=== PATIENT | female | born 2000 | race Hispanic/Latino ===

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

== ENCOUNTER 2018-08-23 13:32 | Emergency (ER) | payer OTHER ==
[2018-08-23 14:00] LABS: APPEARANCE,URINE Cloudy (CLEAR); BILIRUBIN,URINE Negative (NEGATIVE); COLOR,URINE Yellow (YELLOW); GLUCOSE, URINE (UA) Negative (NEGATIVE); KETONES,URINE Negative (NEGATIVE); LEUKOCYTE ESTERASE ,URINE Trace (NEGATIVE); NITRATE,URINE Negative (NEGATIVE); OCCULT BLOOD,URINE Negative (NEGATIVE); PH,URINE 5.5 (5.0-8.0); PROTEIN,URINE Negative (NEGATIVE)
[2018-08-23 14:02] LABS: HCG,QUAL RESULT NEGATIVE (NEGATIVE)
[2018-08-23 14:16] LABS: BACTERIA,URINE Rare /HPF (None Seen); MUCUS,URINE Few LPF (None Seen); RBC,URINE 0-1 /HPF (0-1); SQUAMOUS EPITHELIAL CELL,UR Rare /HPF (0-2); WBC,URINE 0-1 /HPF (0-1)
[2018-08-23] MEDS ORDERED: CEFTRIAXONE SODIUM 500 MG VIAL ONE (14:21)
[2018-08-23] MEDS ORDERED: LIDOCAINE HCL-MPF 1% 2ML VIAL ONE (14:21)
[2018-08-23] MEDS ORDERED: AZITHROMYCIN 250 MG TABLET PO ONE (14:22)
[2018-08-23] MEDS ORDERED: ONDANSETRON ODT 4 MG TAB ONE (14:22)
== END 2018-08-23 14:43 | disposition home or self-care (01) ==
LOC: EDH 13:32
DX: N73.9 Female pelvic inflammatory disease, unspecified (principal); N39.0 Urinary tract infection, site not specified; F90.9 Attention-deficit hyperactivity disorder, unspecified type; Z87.891 Personal history of nicotine dependence
CPT/HCPCS: 81001; 81025; 87088; 96372; 99284; J0696; J3490

== ENCOUNTER 2019-03-26 22:56 | Emergency (ER) | payer OTHER ==
[2019-03-26 23:34] LABS: APPEARANCE,URINE SL CLOUDY (CLEAR); BILIRUBIN,URINE NEGATIVE (NEGATIVE); COLOR,URINE YELLOW (YELLOW); GLUCOSE, URINE (UA) NEGATIVE (NEGATIVE); KETONES,URINE NEGATIVE (NEGATIVE); LEUKOCYTE ESTERASE ,URINE SMALL (NEGATIVE); NITRATE,URINE POSITIVE (NEGATIVE); OCCULT BLOOD,URINE NEGATIVE (NEGATIVE); PROTEIN,URINE TRACE mg/dL (NEGATIVE)
[2019-03-26 23:36] LABS: HCG,QUAL RESULT NEGATIVE (NEGATIVE)
[2019-03-26 23:41] LABS: BACTERIA,URINE Many /HPF (None Seen); MUCUS,URINE Few LPF (None Seen); RBC,URINE 0-1 /HPF (0-1)
[2019-03-27] MEDS ORDERED: LIDOCAINE HCL-MPF 1% 2ML VIAL ONE (00:17)
[2019-03-27] MEDS ORDERED: CEFTRIAXONE SODIUM 1 GM ONE (00:17)
== END 2019-03-27 00:45 | disposition home or self-care (01) ==
LOC: EDH 22:56
DX: N39.0 Urinary tract infection, site not specified (principal); J04.0 Acute laryngitis; F90.9 Attention-deficit hyperactivity disorder, unspecified type; Z72.0 Tobacco use
CPT/HCPCS: 81001; 81025; 96372; 99284; J0696; J3490

== ENCOUNTER 2019-06-30 14:20 | Emergency (ER) | payer OTHER ==
[2019-06-30 14:47] LABS: APPEARANCE,URINE Cloudy (CLEAR); BILIRUBIN,URINE Negative (NEGATIVE); COLOR,URINE Yellow (YELLOW); GLUCOSE, URINE (UA) Negative (NEGATIVE); HCG,QUAL RESULT NEGATIVE (NEGATIVE); KETONES,URINE Negative (NEGATIVE); LEUKOCYTE ESTERASE ,URINE Small (NEGATIVE); NITRATE,URINE Negative (NEGATIVE); OCCULT BLOOD,URINE Negative (NEGATIVE); PROTEIN,URINE Trace mg/dL (NEGATIVE)
[2019-06-30 14:53] LABS: BACTERIA,URINE Many /HPF (None Seen)
[2019-06-30 14:54] LABS: AMPHET/METH SCREEN,URINE NEGATIVE (NEGATIVE); BARBITURATE SCREEN, URINE NEGATIVE (NEGATIVE); BENZODIAZEPINES SCREEN,URINE NEGATIVE (NEGATIVE); CANNABINOID SCREEN,URINE NEGATIVE (NEGATIVE); COCAINE SCREEN,URINE NEGATIVE (NEGATIVE); MUCUS,URINE Moderate LPF (None Seen); OPIATE SCREEN,URINE NEGATIVE (NEGATIVE); PHENCYCLIDINE SCREEN,URINE NEGATIVE (NEGATIVE)
== END 2019-06-30 16:02 | disposition home or self-care (01) ==
LOC: EDH 14:20
DX: N39.0 Urinary tract infection, site not specified (principal); F90.9 Attention-deficit hyperactivity disorder, unspecified type
CPT/HCPCS: 80305; 81001; 81025

== ENCOUNTER 2019-11-01 02:15 | Emergency (ER) | payer OTHER ==
[2019-11-01 02:51] LABS: APPEARANCE,URINE Clear (CLEAR); BILIRUBIN,URINE Negative (NEGATIVE); COLOR,URINE Yellow (YELLOW); GLUCOSE, URINE (UA) Negative (NEGATIVE); KETONES,URINE Negative (NEGATIVE); LEUKOCYTE ESTERASE ,URINE Negative (NEGATIVE); NITRATE,URINE Negative (NEGATIVE); OCCULT BLOOD,URINE Negative (NEGATIVE); PH,URINE 6.5 (5.0-8.0); PROTEIN,URINE Negative (NEGATIVE)
[2019-11-01] MEDS ORDERED: PHENAZOPYRIDINE HCL 200 MG TABLET ONE ×2 (03:32→03:36)
[2019-11-01] MEDS ORDERED: LEVOFLOXACIN 500 MG TABLET ONE ×2 (03:32→03:36)
== END 2019-11-01 03:41 | disposition home or self-care (01) ==
LOC: EDH 02:15
DX: R30.0 Dysuria (principal); R10.84 Generalized abdominal pain; F90.9 Attention-deficit hyperactivity disorder, unspecified type
CPT/HCPCS: 81003; 81025; 87077; 87088; 87186; 87486; 87797

== ENCOUNTER 2021-08-19 19:52 | Emergency (ER) | payer SELFPAY ==
[~2021-08-19] VITALS: Ht 162.6 cm; Wt 210.9 kg
[2021-08-19] MEDS ORDERED: MAG/ALUM/SIMETH 30 ML UDCUP PO ONE (20:30)
[2021-08-19 21:00] LABS: APPEARANCE,URINE Cloudy (CLEAR); BILIRUBIN,URINE Small (NEGATIVE); COLOR,URINE Dark Yellow (YELLOW); GLUCOSE, URINE (UA) Negative (NEGATIVE); KETONES,URINE Trace mg/dL (NEGATIVE); LEUKOCYTE ESTERASE ,URINE Trace (NEGATIVE); NITRATE,URINE Positive (NEGATIVE); OCCULT BLOOD,URINE Negative (NEGATIVE); PROTEIN,URINE Trace mg/dL (NEGATIVE)
[2021-08-19 21:05] LABS: BACTERIA,URINE Moderate /HPF (None Seen); MUCUS,URINE Moderate LPF (None Seen); RBC,URINE 0-1 /HPF (0-1); SQUAMOUS EPITHELIAL CELL,UR Moderate /HPF (0-2)
[2021-08-19] MEDS ORDERED: CEPH500B PO (21:18)
[2021-08-19] MEDS ORDERED: CEFTRIAXONE 1G VIAL IVP ONE (21:30)
[2021-08-19 21:52] VITALS: BP 114/67
== END 2021-08-19 22:00 | disposition home or self-care (01) ==
LOC: EDH 19:52
DX: N39.0 Urinary tract infection, site not specified (principal); J02.9 Acute pharyngitis, unspecified
CPT/HCPCS: 81001; 87077; 87088; 87186; 87486; 87797; 87804 ×2; 87880; 96374; 99283; J0696

== ENCOUNTER 2022-01-23 16:14 | Emergency (ER) | payer MEDICAID, OTHER ==
[~2022-01-23] VITALS: Ht 162.6 cm; Wt 68.0 kg
[~2022-01-23 16:14] MED LIST: CEPH500B PO; MACR100 PO
[2022-01-23 17:04] LABS: BASOPHILS % (AUTO) 0.2 % (0.0-5.0); EOSINOPHILS % (AUTO) 1.8 % (0.0-8.0); HEMATOCRIT 34.4 % (36-48); LYMPHOCYTES % (AUTO) 23.6 % (21.0-51.0); MEAN CORPUSCULAR HEMOGLOBIN 27.3 pg (27.0-33.0); MEAN CORPUSCULAR HGB CONC 33.1 g/dL (32.0-36.0); MEAN CORPUSCULAR VOLUME 82.5 fL (79-99); MONOCYTES % (AUTO) 6.4 % (3.0-13.0); NEUTROPHILS % (AUTO) 67.3 % (40.0-77.0); PLATELET COUNT (AUTO) 178 K/uL (130-400); RED BLOOD CELL COUNT(AUTO) 4.17 MIL/uL (4.00-5.50); RED CELL DISTRIBUTION WIDTH 13.9 % (11.0-15.5); WHITE BLOOD COUNT (AUTO) 8.5 K/uL (4.8-10.8)
[2022-01-23 17:05] LABS: APPEARANCE,URINE CLOUDY (CLEAR); BILIRUBIN,URINE NEGATIVE (NEGATIVE); COLOR,URINE YELLOW (YELLOW); GLUCOSE, URINE (UA) NEGATIVE (NEGATIVE); KETONES,URINE NEGATIVE (NEGATIVE); LEUKOCYTE ESTERASE ,URINE LARGE (NEGATIVE); NITRATE,URINE POSITIVE (NEGATIVE); OCCULT BLOOD,URINE NEGATIVE (NEGATIVE); PH,URINE 6.5 (5.0-8.0); PROTEIN,URINE NEGATIVE (NEGATIVE)
[2022-01-23 17:23] LABS: CREATININE 0.5 mg/dL (0.5-1.5); POTASSIUM 3.5 mmol/L (3.5-5.1)
[2022-01-23 17:28] LABS: BILIRUBIN,TOTAL 0.2 mg/dL (0.2-1.0); TOTAL PROTEIN, SERUM 7.2 g/dL (6.0-8.3)
[2022-01-23 18:38] LABS: BACTERIA,URINE Many /HPF (None Seen); RBC,URINE 0-1 /HPF (0-1)
[2022-01-23 18:39] LABS: SQUAMOUS EPITHELIAL CELL,UR Moderate /HPF (0-2)
[2022-01-23] MEDS ORDERED: CEPH500B PO (19:10)
[2022-01-23] MEDS ORDERED: CEFTRIAXONE 1G VIAL IM ONE (19:30)
[2022-01-23] MEDS ORDERED: AZITHROMYCIN 250 MG TABLET PO ONE (19:30)
[2022-01-23 19:50] VITALS: BP 110/60
== END 2022-01-23 19:58 | disposition home or self-care (01) ==
LOC: EDH 16:14
DX: O23.42 Unspecified infection of urinary tract in pregnancy, second trimester (principal); N39.0 Urinary tract infection, site not specified; O98.312 Other infections with a predominantly sexual mode of transmission complicating pregnancy, second trimester; Z3A.17 17 weeks gestation of pregnancy
CPT/HCPCS: 36415; 76805; 80053; 81001; 85025; 87077; 87088; 87186; 87210; 87486; 87797; 96372; 99284; J0696

== ENCOUNTER 2022-02-14 23:12 | Observation (INO) | payer MEDICAID ==
[~2022-02-14] VITALS: Ht 162.6 cm; Wt 73.9 kg
[2022-02-14 23:36] VITALS: BP 128/56
[2022-02-15 00:13] LABS: APPEARANCE,URINE Clear (CLEAR); BILIRUBIN,URINE Negative (NEGATIVE); COLOR,URINE Yellow (YELLOW); GLUCOSE, URINE (UA) Negative (NEGATIVE); KETONES,URINE Negative (NEGATIVE); LEUKOCYTE ESTERASE ,URINE Moderate (NEGATIVE); NITRATE,URINE Negative (NEGATIVE); OCCULT BLOOD,URINE Negative (NEGATIVE); PROTEIN,URINE Negative (NEGATIVE)
[2022-02-15 00:21] LABS: AMPHET/METH SCREEN,URINE NEGATIVE (NEGATIVE); BARBITURATE SCREEN, URINE NEGATIVE (NEGATIVE); BENZODIAZEPINES SCREEN,URINE NEGATIVE (NEGATIVE); CANNABINOID SCREEN,URINE POSITIVE (NEGATIVE); COCAINE SCREEN,URINE NEGATIVE (NEGATIVE); OPIATE SCREEN,URINE NEGATIVE (NEGATIVE); PHENCYCLIDINE SCREEN,URINE NEGATIVE (NEGATIVE)
[2022-02-15 00:48] LABS: RBC,URINE 0-1 /HPF (0-1)
[2022-02-15 00:49] LABS: BACTERIA,URINE Rare /HPF (None Seen); SQUAMOUS EPITHELIAL CELL,UR Few /HPF (0-2)
[2022-02-15] MEDS ORDERED: LACTATED RINGERS 1000ML IV SCH (01:00)
== END 2022-02-15 01:20 | disposition home or self-care (01) ==
LOC: EDH 23:12 → LDH 23:13
PROVIDERS: ADMIT Obstetrics & Gynecology; ATTEND Obstetrics & Gynecology
DX: O26.892 Other specified pregnancy related conditions, second trimester (principal); R10.30 Lower abdominal pain, unspecified; O26.852 Spotting complicating pregnancy, second trimester; Z3A.19 19 weeks gestation of pregnancy; Z79.899 Other long term (current) drug therapy
CPT/HCPCS: 59025; 80305; 81001; 87088; 96360; G0378; G0379; J7120

== ENCOUNTER 2022-03-23 01:03 | Observation (INO) | payer MEDICAID ==
[~2022-03-23] VITALS: Ht 162.6 cm; Wt 4.5 kg
[2022-03-23 01:05] VITALS: BP 128/78
[2022-03-23 01:43] LABS: APPEARANCE,URINE Cloudy (CLEAR); BILIRUBIN,URINE Negative (NEGATIVE); COLOR,URINE Yellow (YELLOW); GLUCOSE, URINE (UA) Negative (NEGATIVE); KETONES,URINE Negative (NEGATIVE); LEUKOCYTE ESTERASE ,URINE Large (NEGATIVE); NITRATE,URINE Negative (NEGATIVE); OCCULT BLOOD,URINE Negative (NEGATIVE); PH,URINE 6.5 (5.0-8.0); PROTEIN,URINE Trace mg/dL (NEGATIVE)
[2022-03-23 02:01] LABS: AMPHET/METH SCREEN,URINE NEGATIVE (NEGATIVE); BARBITURATE SCREEN, URINE NEGATIVE (NEGATIVE); BENZODIAZEPINES SCREEN,URINE POSITIVE (NEGATIVE); CANNABINOID SCREEN,URINE NEGATIVE (NEGATIVE); COCAINE SCREEN,URINE NEGATIVE (NEGATIVE); OPIATE SCREEN,URINE NEGATIVE (NEGATIVE); PHENCYCLIDINE SCREEN,URINE NEGATIVE (NEGATIVE)
[2022-03-23 02:10] LABS: BACTERIA,URINE Few /HPF (None Seen); MUCUS,URINE Few LPF (None Seen); RBC,URINE None Seen /HPF (0-1); SQUAMOUS EPITHELIAL CELL,UR Many /HPF (0-2)
== END 2022-03-23 05:50 | disposition home or self-care (01) ==
LOC: EDH 01:03 → LDH 01:19
PROVIDERS: ADMIT Obstetrics & Gynecology; ATTEND Obstetrics & Gynecology
DX: O26.892 Other specified pregnancy related conditions, second trimester (principal); R10.9 Unspecified abdominal pain; Z3A.25 25 weeks gestation of pregnancy; Y04.0XXA Assault by unarmed brawl or fight, initial encounter; Y93.89 Activity, other specified; Y92.039 Unspecified place in apartment as the place of occurrence of the external cause
CPT/HCPCS: 76805; 80305; 81001; 87088; G0378 ×4; G0379; J7120

== ENCOUNTER 2022-04-15 15:26 | Observation (INO) | payer MEDICAID ==
[~2022-04-15] VITALS: Ht 162.6 cm; Wt 77.1 kg
[2022-04-15 15:27] VITALS: BP 117/74
[2022-04-15 16:00] LABS: APPEARANCE,URINE SL CLOUDY (CLEAR); BILIRUBIN,URINE NEGATIVE (NEGATIVE); COLOR,URINE YELLOW (YELLOW); GLUCOSE, URINE (UA) NEGATIVE (NEGATIVE); KETONES,URINE NEGATIVE (NEGATIVE); LEUKOCYTE ESTERASE ,URINE NEGATIVE (NEGATIVE); NITRATE,URINE NEGATIVE (NEGATIVE); OCCULT BLOOD,URINE MODERATE (NEGATIVE); PH,URINE 7.5 (5.0-8.0); PROTEIN,URINE NEGATIVE (NEGATIVE); UROBILINOGEN,URINE 0.2 mg/dL (0.2-1.0)
[2022-04-15 16:09] LABS: AMPHET/METH SCREEN,URINE NEGATIVE (NEGATIVE); BARBITURATE SCREEN, URINE NEGATIVE (NEGATIVE); BENZODIAZEPINES SCREEN,URINE NEGATIVE (NEGATIVE); CANNABINOID SCREEN,URINE NEGATIVE (NEGATIVE); COCAINE SCREEN,URINE NEGATIVE (NEGATIVE); OPIATE SCREEN,URINE NEGATIVE (NEGATIVE); PHENCYCLIDINE SCREEN,URINE NEGATIVE (NEGATIVE)
[2022-04-15 16:15] LABS: BACTERIA,URINE Rare /HPF (None Seen); MUCUS,URINE Few LPF (None Seen); SQUAMOUS EPITHELIAL CELL,UR Few /HPF (0-2); URIC ACID CRYSTALS,URINE Few /LPF (None Seen); WBC,URINE 0-1 /HPF (0-1)
[2022-04-15] MEDS ORDERED: LACTATED RINGERS 1000ML IV SCH (17:00)
[2022-04-15] MEDS ORDERED: CELESTONE SOLUSPAN 6 MG/ML 5ML VIAL IM SCH (19:30)
[2022-04-15] MEDS ORDERED: LACTATED RINGERS 1000ML 1,000 ML IV SCH (19:30)
[2022-04-16] MEDS ORDERED: PHARMACY COMMUNICATION MISC SCH (06:30)
[2022-04-16] MEDS ORDERED: CELESTONE SOLUSPAN 6 MG/ML 5ML VIAL IM SCH (07:30)
== END 2022-04-16 07:45 | disposition home or self-care (01) ==
LOC: EDH 15:26 → LDH 15:27
PROVIDERS: ADMIT Obstetrics & Gynecology; ATTEND Obstetrics & Gynecology
DX: O46.93 Antepartum hemorrhage, unspecified, third trimester (principal); O62.9 Abnormality of forces of labor, unspecified; Z3A.28 28 weeks gestation of pregnancy
CPT/HCPCS: 59025; 76805; 80305; 81001; 96360; 96361 ×4; 96372 ×2; G0378 ×16; J0702; J7120

== ENCOUNTER 2022-05-30 21:57 | Observation (INO) | payer MEDICAID ==
[2022-05-30 21:58] VITALS: BP 104/72
[2022-05-30] MEDS ORDERED: LACTATED RINGERS 1000ML 1,000 ML IV SCH (23:00)
== END 2022-05-30 23:50 | disposition home or self-care (01) ==
LOC: EDH 21:57 → LDH 21:58
PROVIDERS: ADMIT Obstetrics & Gynecology; ATTEND Obstetrics & Gynecology
DX: O46.93 Antepartum hemorrhage, unspecified, third trimester (principal); O26.893 Other specified pregnancy related conditions, third trimester; R10.9 Unspecified abdominal pain; Z3A.34 34 weeks gestation of pregnancy
CPT/HCPCS: 96360; G0378 ×2; G0379

== ENCOUNTER 2023-05-14 03:51 | Emergency (ER) | payer MEDICAID ==
[~2023-05-14] VITALS: Ht 162.6 cm; Wt 86.2 kg
[~2023-05-14 03:51] MED LIST changes: +ACET-2743 PO; +IBUP-2070 PO; -MACR100 PO; +PREN-226 PO
[2023-05-14] MEDS ORDERED: IBUP-1493 PO (05:13)
[2023-05-14 05:29] VITALS: BP 117/68; PULSE 75; RESP 18; O2SAT 98
== END 2023-05-14 05:45 | disposition home or self-care (01) ==
LOC: EDH 03:51
DX: U07.1 COVID-19 (principal); Z79.899 Other long term (current) drug therapy; Z98.890 Other specified postprocedural states
CPT/HCPCS: 99283; 87635; 87880; 87804 ×2; C9803

== ENCOUNTER 2023-07-02 18:49 | Emergency (ER) | payer MEDICAID ==
[~2023-07-02] VITALS: Ht 162.6 cm; Wt 85.7 kg
[~2023-07-02 18:49] MED LIST changes: +IBUP-1493 PO
[2023-07-02 19:38] VITALS: BP 112/70; PULSE 90; RESP 18
[2023-07-02] MEDS ORDERED: CEFTRIAXONE 1G VIAL IM ONE (21:00)
[2023-07-02] MEDS ORDERED: AZITHROMYCIN 250 MG TABLET PO ONE (21:00)
[2023-07-02 21:16] LABS: APPEARANCE,URINE CLOUDY (CLEAR); BILIRUBIN,URINE NEGATIVE (NEGATIVE); COLOR,URINE YELLOW (YELLOW); GLUCOSE, URINE (UA) NEGATIVE (NEGATIVE); KETONES,URINE NEGATIVE (NEGATIVE); LEUKOCYTE ESTERASE ,URINE NEGATIVE Leu/uL (NEGATIVE); NITRATE,URINE 2+ (NEGATIVE); OCCULT BLOOD,URINE NEGATIVE (NEGATIVE); PROTEIN,URINE 20 mg/dL (NEGATIVE); UROBILINOGEN,URINE 0.2 mg/dL (0.2-1.0)
[2023-07-02 21:33] LABS: ADD UA MICROSCOPIC YES
[2023-07-02 21:35] LABS: BACTERIA,URINE MOD /HPF (None Seen); MUCUS,URINE MOD LPF (None Seen); SQUAMOUS EPITHELIAL CELL,UR RARE /HPF (0-2)
== END 2023-07-02 23:09 | disposition home or self-care (01) ==
LOC: EDH 18:49
DX: A64 Unspecified sexually transmitted disease (principal); Z21 Asymptomatic human immunodeficiency virus [HIV] infection status; Z79.899 Other long term (current) drug therapy; Z98.890 Other specified postprocedural states
CPT/HCPCS: 99283; 87077; 87088; 87186; 87797; 86701; 87390; 87486; 81001; 36415; 96372; J0696

== ENCOUNTER 2023-08-13 22:35 | Emergency (ER) | payer MEDICAID ==
[~2023-08-13] VITALS: Ht 162.6 cm; Wt 79.8 kg
[2023-08-13 22:56] LABS: APPEARANCE,URINE CLEAR (CLEAR); BILIRUBIN,URINE NEGATIVE (NEGATIVE); COLOR,URINE LIGHT-YELLOW (YELLOW); GLUCOSE, URINE (UA) NEGATIVE (NEGATIVE); KETONES,URINE NEGATIVE (NEGATIVE); LEUKOCYTE ESTERASE ,URINE NEGATIVE Leu/uL (NEGATIVE); NITRATE,URINE NEGATIVE (NEGATIVE); OCCULT BLOOD,URINE NEGATIVE (NEGATIVE); PROTEIN,URINE 20 mg/dL (NEGATIVE)
[2023-08-13 22:59] LABS: HCG,QUALITATIVE URINE POSITIVE (NEGATIVE)
[2023-08-13 23:01] LABS: BASOPHILS # (AUTO) 0.02 K/uL (0.00-0.20); BASOPHILS % (AUTO) 0.3 % (0.0-5.0); EOSINOPHILS # (AUTO) 0.13 K/uL (0.00-0.70); EOSINOPHILS % (AUTO) 1.8 % (0.0-8.0); HEMATOCRIT 40.7 % (36-48); IMMATURE GRANULOCYTE ABSOLUTE 0.03 K/uL (0-1); LYMPHOCYTES # (AUTO) 2.5 K/uL (1.0-4.8); LYMPHOCYTES % (AUTO) 33.5 % (21.0-51.0); MEAN CORPUSCULAR HEMOGLOBIN 25.5 pg (27.0-33.0); MEAN CORPUSCULAR HGB CONC 31.7 g/dL (32.0-36.0); MEAN CORPUSCULAR VOLUME 80.4 fL (79-99); MONOCYTES # (AUTO) 0.3 K/uL (0.1-1.0); MONOCYTES % (AUTO) 4.6 % (3.0-13.0); NEUTROPHILS # (AUTO) 4.4 K/uL (1.8-7.7); NEUTROPHILS % (AUTO) 59.4 % (40.0-77.0); PLATELET COUNT (AUTO) 227 K/uL (130-400); RED BLOOD CELL COUNT(AUTO) 5.06 MIL/uL (4.00-5.50); RED CELL DISTRIBUTION WIDTH 14.7 % (11.0-15.5); WHITE BLOOD COUNT (AUTO) 7.4 K/uL (4.8-10.8)
[2023-08-13 23:01] LABS: ADD UA MICROSCOPIC YES
[2023-08-13 23:03] LABS: MUCUS,URINE FEW LPF (None Seen); RBC,URINE 0-1 /HPF (0-1); SQUAMOUS EPITHELIAL CELL,UR RARE /HPF (0-2)
[2023-08-13 23:11] LABS: CREATININE 0.8 mg/dL (0.5-1.5); POTASSIUM 3.5 mmol/L (3.5-5.1)
[2023-08-13 23:21] LABS: BILIRUBIN,TOTAL 0.3 mg/dL (0.2-1.0)
[2023-08-13 23:22] LABS: ALBUMIN 3.6 g/dL (3.5-5.0); TOTAL PROTEIN, SERUM 7.9 g/dL (6.0-8.3)
[2023-08-13 23:41] LABS: AMPHET/METH SCREEN,URINE NEGATIVE (NEGATIVE); BARBITURATE SCREEN, URINE NEGATIVE (NEGATIVE); BENZODIAZEPINES SCREEN,URINE POSITIVE (NEGATIVE); CANNABINOID SCREEN,URINE NEGATIVE (NEGATIVE); COCAINE SCREEN,URINE NEGATIVE (NEGATIVE); OPIATE SCREEN,URINE NEGATIVE (NEGATIVE); PHENCYCLIDINE SCREEN,URINE NEGATIVE (NEGATIVE)
[2023-08-14 01:37] VITALS: BP 126/70; PULSE 76; RESP 18; O2SAT 100
== END 2023-08-14 01:38 | disposition home or self-care (01) ==
LOC: EDH 22:35
DX: O26.891 Other specified pregnancy related conditions, first trimester (principal); R10.30 Lower abdominal pain, unspecified; O21.9 Vomiting of pregnancy, unspecified; Z3A.01 Less than 8 weeks gestation of pregnancy; Z79.899 Other long term (current) drug therapy; Z98.890 Other specified postprocedural states
CPT/HCPCS: 36415; 76801; 80053; 80305; 81001; 81025; 83690; 84702; 85025

== ENCOUNTER 2024-03-25 19:05 | Observation (INO) | payer MEDICAID ==
[~2024-03-25] VITALS: Ht 162.6 cm; Wt 82.1 kg
[2024-03-25 19:12] VITALS: BP 105/53; PULSE 68; RESP 16
[2024-03-25 19:57] LABS: APPEARANCE,URINE CLOUDY (CLEAR); BILIRUBIN,URINE NEGATIVE (NEGATIVE); COLOR,URINE LIGHT-YELLOW (YELLOW); GLUCOSE, URINE (UA) NEGATIVE (NEGATIVE); KETONES,URINE 5 mg/dL (NEGATIVE); LEUKOCYTE ESTERASE ,URINE 500 Leu/uL (NEGATIVE); NITRATE,URINE 2+ (NEGATIVE); OCCULT BLOOD,URINE NEGATIVE (NEGATIVE); PH,URINE 6.5 (5.0-8.0); PROTEIN,URINE NEGATIVE (NEGATIVE); UROBILINOGEN,URINE 0.2 mg/dL (0.2-1.0)
[2024-03-25 19:58] LABS: ADD UA MICROSCOPIC YES
[2024-03-25 20:00] LABS: BACTERIA,URINE MANY /HPF (None Seen); MUCUS,URINE RARE LPF (None Seen); RBC,URINE 0-1 /HPF (0-1); SQUAMOUS EPITHELIAL CELL,UR MOD /HPF (0-2)
[2024-03-25 20:11] LABS: AMPHET/METH SCREEN,URINE NEGATIVE (NEGATIVE); BARBITURATE SCREEN, URINE NEGATIVE (NEGATIVE); BENZODIAZEPINES SCREEN,URINE POSITIVE (NEGATIVE); CANNABINOID SCREEN,URINE NEGATIVE (NEGATIVE); COCAINE SCREEN,URINE NEGATIVE (NEGATIVE); OPIATE SCREEN,URINE NEGATIVE (NEGATIVE); PHENCYCLIDINE SCREEN,URINE NEGATIVE (NEGATIVE)
[2024-03-25] MEDS: LACTATED RINGERS 1000ML IV SCH (20:31)
[2024-03-25] MEDS ORDERED: TERBUTALINE SULFATE VIAL 1MG/ML SQ SCH (21:00)
[2024-03-25] MEDS ORDERED: TERBUTALINE SULFATE VIAL 1MG/ML SQ ONE (21:04)
[2024-03-25] MEDS ORDERED: ACETAMINOPHEN 325 MG TAB ONE (21:04)
[2024-03-25] MEDS: ACETAMINOPHEN 325 MG TAB PO SCH (21:22)
== END 2024-03-25 21:38 | disposition home or self-care (01) ==
LOC: EDH 19:05 → LDH 19:33
PROVIDERS: ADMIT Obstetrics & Gynecology; ATTEND Obstetrics & Gynecology
DX: O60.03 Preterm labor without delivery, third trimester (principal); Z3A.36 36 weeks gestation of pregnancy
CPT/HCPCS: 96360; 80305; 87077; 87088; 87186; 81001; G0378 ×2; G0379; J7120; 96372; J3105

== ENCOUNTER 2024-10-27 07:33 | Emergency (ER) | payer MEDICAID ==
[~2024-10-27] VITALS: Ht 162.6 cm; Wt 76.7 kg
[2024-10-27] MEDS: LORazepam 2 MG/ML 1 ML VIAL IVP ONE (08:38)
[2024-10-27] MEDS: 0.9%NACL 1000ML 1,000 ML IV ONE (08:38)
[2024-10-27 08:41] LABS: AMPHET/METH SCREEN,URINE NEGATIVE (NEGATIVE); BARBITURATE SCREEN, URINE NEGATIVE (NEGATIVE); BENZODIAZEPINES SCREEN,URINE POSITIVE (NEGATIVE); CANNABINOID SCREEN,URINE NEGATIVE (NEGATIVE); COCAINE SCREEN,URINE POSITIVE (NEGATIVE); OPIATE SCREEN,URINE NEGATIVE (NEGATIVE); PHENCYCLIDINE SCREEN,URINE NEGATIVE (NEGATIVE)
[2024-10-27 08:43] LABS: BASOPHILS # (AUTO) 0.03 K/uL (0.00-0.20); BASOPHILS % (AUTO) 0.4 % (0.0-5.0); EOSINOPHILS % (AUTO) 1.2 % (0.0-8.0); IMMATURE GRANULOCYTE ABSOLUTE 0.03 K/uL (0-1); LYMPHOCYTES # (AUTO) 2.4 K/uL (1.0-4.8); LYMPHOCYTES % (AUTO) 29.5 % (21.0-51.0); MEAN CORPUSCULAR HEMOGLOBIN 24.3 pg (27.0-33.0); MEAN CORPUSCULAR HGB CONC 31.3 g/dL (32.0-36.0); MEAN CORPUSCULAR VOLUME 77.8 fL (79-99); MONOCYTES # (AUTO) 0.4 K/uL (0.1-1.0); NEUTROPHILS # (AUTO) 5.2 K/uL (1.8-7.7); NEUTROPHILS % (AUTO) 63.5 % (40.0-77.0); PLATELET COUNT (AUTO) 233 K/uL (130-400); RED BLOOD CELL COUNT(AUTO) 5.14 MIL/uL (4.00-5.50); RED CELL DISTRIBUTION WIDTH 16.4 % (11.0-15.5); WHITE BLOOD COUNT (AUTO) 8.2 K/uL (4.8-10.8)
[2024-10-27 08:56] LABS: ALANINE AMINOTRANSFERASE 21 U/L (12-78); ALBUMIN 3.8 g/dL (3.5-5.0); ASPARTATE AMINOTRANSFERASE 18 U/L (10-37); BILIRUBIN,DIRECT < 0.1 mg/dL (0.0-0.3); BILIRUBIN,TOTAL 0.2 mg/dL (0.2-1.0); CARBON DIOXIDE 27 mmol/L (21-32); CHLORIDE 103 mmol/L (101-111); CREATINE KINASE, TOTAL 80 U/L (21-232); CREATININE 0.7 mg/dL (0.5-1.0); GLOMERULAR FILTR. RATE CALC 122 mL/min (>90); GLUCOSE,RANDOM 91 mg/dL (70-105); POTASSIUM 3.2 mmol/L (3.5-5.1); SODIUM SERUM 140 mmol/L (136-145); TOTAL PROTEIN, SERUM 8.2 g/dL (6.0-8.3); UREA NITROGEN, BLOOD 16 mg/dL (7-18)
--- NOTE | 2024-10-27 09:15 | EKG ---
[facility] Test Date: 2024-10-27 Test Time: 07:45:02 Pat Name: YVONNE CRUZ Department: [facility] Room: Gender: F Intermediate Manager: [id number] : 2000 Requested By: JARRETT LAZCANO Order Number: [id number] Reading MD: Delmy Vogel Measurements Intervals [place] Rate: 113 P: 16 [place]: 123 QRS: 18 QRSD: 91 T: -30 QT: 391 QTc: 538 Interpretive Statements Sinus tachycardia Borderline T abnormalities, diffuse leads Prolonged QT interval Compared to ECG 06/02/2018 04:45:21 T-wave abnormality now present Prolonged QT interval now present Sinus rhythm no longer present Sinus arrhythmia no longer present Electronically Signed On 10-30-2024 08:15:31 WATER QUALITY ASSISTANT by Delmy Vogel Please click the below link to view image of tracing.
--- NOTE | 2024-10-27 09:20 | ERN ---
ED Note History of Present Illness Stated Complaint: ANXIETY AFTER COCAINE USE Chief Complaint: Drug Abuse Time Seen by MD: 07:34 Dictation: 24-year-old female presents to the ED for evaluation of anxiety after cocaine use. Patient reports nausea, vomiting, palpitations, but denies any other associated symptoms at this time. Patient states she was drinking alcohol and did some cocaine that is when symptoms started. Allergies: Coded Allergies: No Known Drug Allergies (Unverified Allergy, Unknown, 03/25/24) Home Meds Active Scripts Ibuprofen (Motrin/Advil) 800 Mg Tab, 800 MG PO TID, #30 TAB Prov:SEAN PLAZA MD 05/14/23 Ibuprofen (Ibuprofen) 600 Mg Tablet, 600 MG PO Q6HPRN PRN for Pain 4-6 and Fever > 101.0 for 7 Days, #21 TAB Prov:YOLIE MILES Jr., MD 07/04/22 Cephalexin Monohydrate (Keflex) 500 Mg Cap, 500 MG PO TID for 7 Days, #21 CAP Prov:YOLIE MILES Jr., MD 07/04/22 Reported Medications Vit No.179/Iron/Folic ( Tablet) 1 Each Tablet, 1 EACH PO ACLUNCH, TAB 07/02/22 Acetaminophen (Tylenol Extra Strength) 500 Mg Tablet, 1000 MG PO Q6HPRN PRN for FEVER, TAB 07/02/22 Past Medical History Past Medical History: Anxiety Additional Past Medical Hx: SUBSTANCE ABUSE Surgical History: None Surgical History Other: BREAST AUGMENTATION Family History: Negative Social History: Negative, Lives with family LMP: Oct 10, 2024 : 6 Para: 2 Aborts: 0 Review of System Dictation Constitutional: Negative for fever,chills, and weight loss Eyes: Negative for injury, pain,redness, and discharge ENT: Negative for injury,pain or swelling Cardiovascular: Positive for palpitations Negative for chest pain, and edema Respiratory: Negative for shortness of breath, cough, and wheezing, Abdomen/GI: Positive for nausea, vomiting,Negative for abdominal pain, diarrhea, and constipation Back: Negative for injury and pain : Negative for injury, bleeding and discharge MS/Extremity: Negative for injury and deformity Skin: Negative for rash, and discoloration Neuro: Negative for headache, weakness, numbness, tingling, and seizure Psych: Negative for suicide ideation, homicidal ideation, and hallucinations Initial Vital Sign VS Vital Signs Date Time Temp Pulse Resp B/P (MAP) Pulse Ox O2 Delivery O2 Flow Rate FiO2 10/27/24 07:34 98.8 135 20 137/92 100 Room Air 0 10/27/24 09:53 21 Physical Exam Dictation General: awake, alert, NAD Head/Face: Normocephalic, atraumatic Eyes: PERRL, EOMI, vision at baseline ENT: oral cavity clear, TMs clear, no signs of infection Neck: Trachea midline, supple, no nuchal rigidity Cardiovascular: RRR, normal S1/S2, No MRGs, no JVD Respiratory: CTAB, no respiratory distress, No rales or wheezes Abdomen: Soft, non-tender, non-distended, normal bowel sounds, no guarding or rebound. Skin: Warm, dry, normal turgor, no rash MS/Extremity: Pulses equal, no cyanosis, neurovascular intact, FROM Neuro: COAx4, GCS 15, strength 5/5, CN 2-12 intact, normal cerebellar exam, normal gait, Psych: Patient appears anxious Results (Laboratory/Radiology) Laboratory/Radiology Laboratory Tests Test 10/27/24 08:18 10/27/24 08:33 Urine Opiates Screen NEGATIVE (NEGATIVE) Urine Barbiturates Screen NEGATIVE (NEGATIVE) Urine Phencyclidine Screen NEGATIVE (NEGATIVE) Urine Amphetamines Screen NEGATIVE (NEGATIVE) Urine Benzodiazepines Screen POSITIVE (NEGATIVE) H Urine Cocaine Screen POSITIVE (NEGATIVE) H Urine Marijuana (THC) Screen NEGATIVE (NEGATIVE) White Blood Count 8.2 K/uL (4.8-10.8) Red Blood Count 5.14 MIL/uL (4.00-5.50) Hemoglobin 12.5 g/dL (12.0-16.0) Hematocrit 40.0 % (36-48) Mean Corpuscular Volume 77.8 fL (79-99) L Mean Corpuscular Hemoglobin 24.3 pg (27.0-33.0) L Mean Corpuscular Hemoglobin Concent 31.3 g/dL (32.0-36.0) L Red Cell Distribution Width 16.4 % (11.0-15.5) H Platelet Count 233 K/uL (130-400) Mean Platelet Volume 10.5 fL (7.5-10.5) Immature Granulocyte % (Auto) 0.4 % (0-1) Neutrophils (%) (Auto) 63.5 % (40.0-77.0) Lymphocytes (%) (Auto) 29.5 % (21.0-51.0) Monocytes (%) (Auto) 5.0 % (3.0-13.0) Eosinophils (%) (Auto) 1.2 % (0.0-8.0) Basophils (%) (Auto) 0.4 % (0.0-5.0) Neutrophils # (Auto) 5.2 K/uL (1.8-7.7) Lymphocytes # (Auto) 2.4 K/uL (1.0-4.8) Monocytes # (Auto) 0.4 K/uL (0.1-1.0) Eosinophils # (Auto) 0.10 K/uL (0.00-0.70) Basophils # (Auto) 0.03 K/uL (0.00-0.20) Absolute Immature Granulocyte (auto 0.03 K/uL (0-1) Nucleated Red Blood Cells 0.0 % (0.0-0.19) Red Blood Cell Morphology See comments Sodium Level 140 mmol/L (136-145) Potassium Level 3.2 mmol/L (3.5-5.1) L Chloride Level 103 mmol/L (101-111) Carbon Dioxide Level 27 mmol/L (21-32) Blood Urea Nitrogen 16 mg/dL (7-18) Creatinine 0.7 mg/dL (0.5-1.0) Glomerular Filtration Rate Calc 122 mL/min (>90) Random Glucose 91 mg/dL (70-105) Total Calcium 8.8 mg/dL (8.5-10.1) Total Bilirubin 0.2 mg/dL (0.2-1.0) Direct Bilirubin < 0.1 mg/dL (0.0-0.3) Aspartate Amino Transf (AST/SGOT) 18 U/L (10-37) Alanine Aminotransferase (ALT/SGPT) 21 U/L (12-78) Alkaline Phosphatase 82 U/L (50-136) Total Creatine Kinase 80 U/L (21-232) Troponin I High Sensitivity < 4 ng/L (4-50) L Total Protein 8.2 g/dL (6.0-8.3) Albumin 3.8 g/dL (3.5-5.0) Labs Reviewed?: Yes EKG Comment: EKG 10/27/2024 time 7:45 a.m. ventricular rate 113, MO 123, QRS D 91, QT 391. Sinus tachycardia, borderline T abnormalities, diffuse leads, prolonged QT interval. No STEMI ED Course ED Course Orders Procedure Category Date Status Time 12 Lead Ekg Tracing- EKG 10/27/24 Complete Technical 07:43 Cbc With Differential LAB 10/27/24 Complete 07:43 Drug Screen Urine LAB 10/27/24 Complete 07:43 Basic Metabolic Panel LAB 10/27/24 Complete 07:43 Troponin I High LAB 10/27/24 Complete Sensitivity 07:43 Creatine Kinase, Total LAB 10/27/24 Complete 07:43 Hepatic Function Panel LAB 10/27/24 Complete 07:43 Lorazepam 2 Mg PHA 10/27/24 Complete (Ativan) 08:00 0.9%Nacl 1000ml (Ns PHA 10/27/24 Complete 1000ml) 08:00 Current Medications Medications (Trade) Dose Ordered Sig/Meron Route PRN Reason Start Time Stop Time Status Last Admin Dose Admin Lorazepam (AtiVAN) 1 mg ONCE ONCE IVP 10/27/24 08:00 10/27/24 08:01 DC 10/27/24 08:38 Sodium Chloride 1,000 ml @ 0 mls/hr ONCE ONCE IV 10/27/24 08:00 10/27/24 08:01 DC 10/27/24 08:38 Vital Signs Date Time Temp Pulse Resp B/P (MAP) Pulse Ox O2 Delivery O2 Flow Rate FiO2 10/27/24 09:53 98.1 97 20 103/69 99 Room Air* 0 21 10/27/24 07:34 98.8 135 20 137/92 100 Room Air 0 HEART Score Response (Comments) Value History: Low suspicion (0) 0 EKG: Normal 0 Age: < 45yrs (0) 0 Risk Factors: No known risk factors (0) 0 Initial Troponin: Normal limit (0) 0 HEART Score Risk: Low Risk for MACE (1-3) Total 0 Medical Decision Making MDM MDM: Differential diagnosis: Anxiety, Dehydration, cocaine abuse Previous outside records reviewed: Old ER visits. Need for hospitalization: Patient does not meet criteria for hospitalization. Need for emergency major/minor surgery: No Patient's prior external medical records from other ER visits were reviewed by me as indicated. Prior testing and results from previous visits were reviewed. Prior tests were taken into account with medical decision making and resource utilization, independent historian/historians were used to obtain complete medical history. I independently interpreted the test that were performed, results were reviewed by me and considered findings on radiology if ordered. Medical management and examination interpretation discussions were had by me with other qualified healthcare professionals as indicated for the patient's care. DX & DISP Disposition: Discharge Departure Impression: Primary Impression: Anxiety Additional Impression: Drug abuse Condition: Stable Referrals: SELF,REFERRAL (PCP) I have reviewed, & agreed with my scribe's, documentation. (Entered by Saleem Connell, acting as a scribe for Dr. Lazcano) I personally scribed for JARRETT LAZCANO MD ([email or web address]) on 10/27/24 at 09:31. Electronically submitted by Saleem Connell ([email or web address]). JARRETT LAZCANO MD Oct 27, 2024 09:20
[2024-10-27 09:53] VITALS: BP 103/69; PULSE 97; RESP 20; TEMP 98; O2SAT 99
== END 2024-10-27 10:01 | disposition home or self-care (01) ==
LOC: EEVIPCON 07:33 → EDH 07:33
DX: F41.9 Anxiety disorder, unspecified (principal); F19.10 Other psychoactive substance abuse, uncomplicated; Z79.1 Long term (current) use of non-steroidal anti-inflammatories (NSAID)
CPT/HCPCS: 99284; 96374; 96361; 82550; 80076; 84484; 80048; 80305; 85025; 36415; 93005; J7030; J2060